=== PATIENT | male | born 1980 | race Caucasian/White ===

== ENCOUNTER 2020-10-09 09:30 | Emergency (ER) | payer OTHER, SELFPAY ==
--- NOTE | 2020-10-09 | ECG_ITS ---
Test Reason : CHEST PAIN Blood Pressure : / mmHG Vent. Rate : 081 BPM Atrial Rate : 081 BPM P-R Int : 166 ms QRS Dur : 092 ms QT Int : 348 ms P-R-T Axes : 064 041 037 degrees QTc Int : 404 ms Normal sinus rhythm Incomplete right bundle branch block Borderline ECG No previous ECGs available Referred By: Generic ED Physician Electronically Signed By:JOI HORNER
--- NOTE | ~2020-10-09 | CT_ITS ---
EXAMINATION: CT HEAD WITHOUT CONTRAST CLINICAL INFORMATION: Lightheaded COMPARISON: None TECHNIQUE: Contiguous axial imaging was performed from the skull base to vertex without intravenous administration of contrast. This CT examination was performed using dose optimization techniques as appropriate, variously including the following: *Automated exposure control *Adjustment of mA and/or kV according to patient size (this includes techniques or standardized protocols for targeted exams where dose is matched to indication/reason for exam; i.e. extremities or head) *Use of iterative reconstruction technique DLP: 671 mGy-cm FINDINGS: There is no evidence of acute intracranial hemorrhage or territorial infarction. No abnormal mass effect or midline shift is seen. [place] to white matter differentiation is well preserved. No extra-axial fluid collections are identified. The ventricles are normal in size. There is no abnormal attenuation within the brain parenchyma. The osseous structures and soft tissues are normal. The mastoid air cells and visualized portions of the paranasal sinuses are well aerated. CT/CT head/brain wo con IMPRESSION: No acute intracranial pathology.
--- NOTE | ~2020-10-09 | XR_ITS ---
EXAMINATION: XR CHEST CLINICAL INFORMATION: Chest pain COMPARISON: None TECHNIQUE: Frontal view of the chest was obtained. FINDINGS: No significant abnormality is noted involving the heart, lungs, mediastinum, bony thorax or soft tissues. XR/XR chest 1V IMPRESSION: Unremarkable examination.
[2020-10-09 09:36] VITALS: BP 161/103; PULSE 86; RESP 17; TEMP 35.9; O2SAT 98; BMI 23.0
[2020-10-09 10:09] VITALS: BP 146/97; PULSE 76; RESP 14; O2SAT 97
[2020-10-09] MEDS: 0.9 % Sodium Chloride 1,000 ML 999 ML IV (10:15)
--- NOTE | 2020-10-09 10:19 | PC.NURSE ---
Peripheral iv inserted in left ac with an 18 gauge insyte. Blood drawn for labs, site secured and flushed with normal saline. Covid swab obtained. Pt tolerated well
--- NOTE | 2020-10-09 10:20 | ED.CHESTPAIN ---
HPI - Chest Pain General Chief Complaint: Chest Pain <NATALYA Awad Last Filed: 10/09/20 15:43> Stated Complaint: upper chest and arm pain <NATALYA Awad Last Filed: 10/09/20 15:43> Time Seen by Provider: 10/09/20 09:49 <NATALYA wAad Last Filed: 10/09/20 15:43> Source: patient <NATALYA Awad Last Filed: 10/09/20 15:43> Mode of arrival: ambulatory <NATALYA Awad Last Filed: 10/09/20 15:43> Limitations: no limitations <NATALYA Awad Last Filed: 10/09/20 15:43> History of Present Illness HPI narrative: Patient presents to ED for multiple complaints. Patient presents to ED for left stabbing sharp chest pain going down left arm since yesterday. Patient also states right leg tingling. Patient denies any shortness of breath, coughing, fever, chills, or swelling of lower extremities. Patient denies any recent drug use. Patient denies any headache, dizziness, or passing out. She states no medical issues. patient also states acid reflux burning sensation abdomen. patient states also feeling fatigued/tired <NATALYA Awad Last Filed: 10/09/20 15:43> MD complaint: chest pain <NATALYA Awad Last Filed: 10/09/20 15:43> Related Data Allergies/Adverse Reactions: Allergies Allergy/AdvReac Type Severity Reaction Status Date / Time No Known Allergies Allergy Unverified 12/21/19 15:42 <NATALYA Awad Last Filed: 10/09/20 15:43> Review of Systems Review of Systems: Yes all other systems are reviewed and are negative <NATALYA Awad Last Filed: 10/09/20 15:43> Constitutional: Constitutional: Reports as per HPI and Reports no additional constitutional complaints <NATALYA Awad Last Filed: 10/09/20 15:43> Eyes: Eyes: Reports as per HPI and Reports no additional eye complaints <NATALYA Awad Last Filed: 10/09/20 15:43> ENT: Reports system reviewed and no additional complaints, except as documented and Reports as per HPI <NATALYA Awad Last Filed: 10/09/20 15:43> Cardiovascular: Cardiovascular: Reports as per HPI, Reports no additional cardiovascular complaints and Reports chest pain <NATALYA Awad Last Filed: 10/09/20 15:43> Respiratory: Respiratory: Reports as per HPI and Reports no additional respiratory complaints <NATALYA Awad Last Filed: 10/09/20 15:43> Gastrointestinal: Gastrointestinal: Reports as per HPI and Reports no additional gastrointestinal complaints <NATALYA Awad Last Filed: 10/09/20 15:43> Genitourinary: Genitourinary: Reports no additional male genitourinary complaints and Reports as per HPI <NATALYA Awad Last Filed: 10/09/20 15:43> Musculoskeletal: Musculoskeletal: Reports no additional musculoskeletal complaints and Reports as per HPI <NATALYA Awad Last Filed: 10/09/20 15:43> Comments: right leg tingling <NATALYA Awad Last Filed: 10/09/20 15:43> Neurologic: Reports system reviewed and no additional complaints, except as documented and Reports as per HPI <NATALYA Awad Last Filed: 10/09/20 15:43> Comments: right leg tingling <NATALYA Awad Last Filed: 10/09/20 15:43> Psychiatric: Psychiatric: Reports no additional psychiatric complaints and Reports as per HPI <NATALYA Aawd Last Filed: 10/09/20 15:43> [facility] Past Medical History Medical History: Medical History (Updated 10/10/20 @ 00:01 by Lesa Maya) Acid reflux Anxiety <NATALYA Awad Last Filed: 10/09/20 15:43> Social History Social History: Social History Patient Tobacco Use Status: Never used Tobacco Use of substances other than those prescribed or required for medical reasons: No Advance Directives: Yes Advance Directives Information Provided: Yes Advance Directives on File: No <NATALYA Awad Last Filed: 10/09/20 15:43> Physical Exam Vital Signs: Vital Signs: Last Vital Signs Temp 96.7 F L 10/09/20 09:36 Pulse 73 10/09/20 14:54 Resp 18 10/09/20 14:54 BP 140/98 H 10/09/20 14:55 Pulse Ox 98 10/09/20 14:54 Body Mass Index 23.0 <NATALYA Awad Last Filed: 10/09/20 15:43> Vital Signs: Last Vital Signs Temp 96.7 F L 10/09/20 09:36 Pulse 73 10/09/20 14:54 Resp 18 10/09/20 14:54 BP 140/98 H 10/09/20 14:55 Pulse Ox 98 10/09/20 14:54 Body Mass Index 23.0 <Yamil Powell MD - Last Filed: 11/11/20 06:39> Const: General: cooperative, healthy appearing, comfortable, no acute distress, well developed, alert and awake <NATALYA Awad - Last Filed: 10/09/20 15:43> Orientation/consciousness: patient oriented x3 <NATALYA Awad Last Filed: 10/09/20 15:43> HENMT: Head: Yes normal to inspection, Yes No palpable skull fracture present, Yes normocephalic, Yes atraumatic and No abrasion <NATALYA Awad Last Filed: 10/09/20 15:43> Eyes: General: appearance normal, both eyes and all related structures <NATALYA Awad Last Filed: 10/09/20 15:43> Neck: Neck: Yes normal visual inspection, Yes full ROM, Yes no lymphadenopathy, Yes no meningeal signs, Yes trachea midline, Yes supple and No tender <NATALYA Awad Last Filed: 10/09/20 15:43> Chest: Chest palpation & inspection: normal inspection of the chest and normal palpation of entire chest wall <NATALYA Awad Last Filed: 10/09/20 15:43> Resp: Effort & Inspection: normal respiratory effort and able to speak in complete sentences <NATALYA Awad Last Filed: 10/09/20 15:43> Auscultation: clear to auscultation bilaterally <NATALYA Awad Last Filed: 10/09/20 15:43> Cardio: Jugular venous distension: no JVD <NATALYA Awad Last Filed: 10/09/20 15:43> Heart sounds: S1 normal heart sound present and S2 normal heart sound present <NATALYA Awad Last Filed: 10/09/20 15:43> GI: Inspection: Yes normal to inspection and No abdominal wall ecchymosis <NATALYA Awad Last Filed: 10/09/20 15:43> Palpation (GI): Soft to palpation, not firm, nontender, no guarding and not rigid <NATALYA Awad Last Filed: 10/09/20 15:43> : General: No CVA tenderness and Yes no CVA tenderness <NATALYA Awad Last Filed: 10/09/20 15:43> Back/Spine/Pelvis: Back: no CVA tenderness, No CVA tenderness and No back tenderness <NATALYA Awad Last Filed: 10/09/20 15:43> Skin: General skin exam: no rashes or lesions noted and elasticity normal <NATALYA Awad Last Filed: 10/09/20 15:43> Neuro: Other: negative pronator drift. Negative facial droop. Negative SIRS speech. All extremities equal strength 5+. [id number] and rapid hand movement intact. Negative Romberg <NATALYA Awad Last Filed: 10/09/20 15:43> General: patient oriented x3, gait normal, no meningeal signs and CN's II-XI intact bilaterally <NATALYA Awad Last Filed: 10/09/20 15:43> Cranial nerves: Yes CN's II-XII intact bilaterally <NATALYA Awad Last Filed: 10/09/20 15:43> Extrem: Other: bilateral lower extremities negative for any swelling, pitting edema, calf tenderness. all extremities equal strength and 5+. All extremities motor/neuro/vascular exam is intact. <NATALYA Awad Last Filed: 10/09/20 15:43> Psych: Appearance: grossly normal, well kempt and not disheveled <NATALYA Awad Last Filed: 10/09/20 15:43> Course Course Course Narrative: Push it will have a medical evaluation included EKG and troponins. <NATALYA Awad Last Filed: 10/09/20 15:43> I have reviewed the chart <Yamil Powell MD - Last Filed: 11/11/20 06:39> Reevaluation(s) Reevaluation #1: patient EKG negative STEMI. First troponin negative. D-dimer is negative PERC score 0. negative for any neuro deficits. Patient received fluids and GI cocktail. Patient will be re-evaluated. Will send patient for head CT although there is no no deficit due to patient stating feeling lightheaded. <NATALYA Awad - Last Filed: 10/09/20 15:43> Time: 09:59 <NATALYA Awad - Last Filed: 10/09/20 15:43> Reevaluation #2: chest x-ray negative for widened mediastinum. Not suspecting a dissection or PE. Head CT came back normal. Second troponin negative. negative for discrepancy of blood pressure in left upper or right lower extremity. Not concerned for PE or dissection <NATALYA Awad - Last Filed: 10/09/20 15:43> Time: 14:43 <NATALYA Awad - Last Filed: 10/09/20 15:43> MDM - Chest Pain MDM Narrative Medical decision making narrative: atypical chest pain. Paresthesia <NATALYA Awad Last Filed: 10/09/20 15:43> Medical Records Data Medical records narrative: normal sinus rhythm. Incomplete right bundle-branch block. Ventricular rate 81. Pr interval 166. QRS 92. QTC 404 <NATALYA Awad Last Filed: 10/09/20 15:43> Lab Data Result diagrams: : 10/09/20 09:59 10/09/20 09:59 <NATALYA Awad Last Filed: 10/09/20 15:43> Labs: Lab Results 10/09/20 10/09/20 10/09/20 Range/Units 09:59 09:59 09:59 WBC 5.6 (4.8-10.8) X10*3/uL RBC 5.05 (4.60-5.80) X10*6/uL Hgb 15.6 (14.0-18.0) g/dl Hct 43.8 (42-52) % MCV 86.7 (80-98) fL MCH 30.9 (27.0-33.0) pg MCHC 35.6 (31.0-36.0) g/dl RDW 12.2 (11.0-16.0) % Plt Count 195 (160-400) X10*3/uL MPV 12.5 H (9.4-12.4) fL Immature Gran % (Auto) 0.5 H (0.0-0.4) % Neut % (Auto) 58.5 (45-73) % Lymph % (Auto) 27.8 (20-40) % [place] % (Auto) 10.3 (2-11) % Eos % (Auto) 2.5 (0-4) % Baso % (Auto) 0.4 (0-2) % Lymph # (Auto) 1.6 (1.2-4.9) X10*3/uL [place] # (Auto) 0.6 (0.1-1.2) X10*3/uL Eos # (Auto) 0.1 (0.0-0.4) X10*3/uL Baso # (Auto) 0.0 (0.0-0.2) X10*3/uL Abs Immat Gran (auto) 0.03 (0.00-0.03) X10*3/uL Absolute Neuts (auto) 3.3 (2.0-8.3) X10*3/uL Absolute Nucleated RBC 0.000 (0.0-0.012) X10*3/uL Nucleated RBC % (auto) 0.0 (0.0-0.2) /100WBC PT (9.9-13.0) SEC INR (0.9-1.1) APTT (24.1-38.0) SEC D-Dimer NG/ML Sodium 141 (135-145) mmol/L Potassium 3.7 (3.3-5.1) mmol/L Chloride 106 (96-108) mmol/L Carbon Dioxide 25 (22-29) mmol/L Anion Gap 14 (12-20) BUN 11 (9-16) mg/dL Creatinine 0.85 (0.5-1.4) mg/dL Estim Creat Clear Calc 124.7 Estimated GFR > 60 Random Glucose 91 (60-115) mg/dL Calcium 10.0 (8.4-10.2) mg/dL Magnesium 2.0 (1.6-2.6) mg/dL Total Bilirubin 0.7 (0.0-1.0) mg/dL AST 26 (5-37) U/L ALT 42 H (0-40) U/L Alkaline Phosphatase 71 (39-117) U/L Total Creatine Kinase 141 (38-174) U/L Troponin I High Sens < 3.5 (<3.5-35.0) ng/L B-Natriuretic Peptide < 10 (<100) pg/mL Total Protein 7.7 (6.5-8.0) g/dL Albumin 4.6 (3.5-5.0) g/dL COVID-19 ([facility]) (Negative) COVID-19 Clin Com 10/09/20 10/09/20 10/09/20 Range/Units 09:59 09:59 12:41 WBC (4.8-10.8) X10*3/uL RBC (4.60-5.80) X10*6/uL Hgb (14.0-18.0) g/dl Hct (42-52) % MCV (80-98) fL MCH (27.0-33.0) pg MCHC (31.0-36.0) g/dl RDW (11.0-16.0) % Plt Count (160-400) X10*3/uL MPV (9.4-12.4) fL Immature Gran % (Auto) (0.0-0.4) % Neut % (Auto) (45-73) % Lymph % (Auto) (20-40) % [place] % (Auto) (2-11) % Eos % (Auto) (0-4) % Baso % (Auto) (0-2) % Lymph # (Auto) (1.2-4.9) X10*3/uL [place] # (Auto) (0.1-1.2) X10*3/uL Eos # (Auto) (0.0-0.4) X10*3/uL Baso # (Auto) (0.0-0.2) X10*3/uL Abs Immat Gran (auto) (0.00-0.03) X10*3/uL Absolute Neuts (auto) (2.0-8.3) X10*3/uL Absolute Nucleated RBC (0.0-0.012) X10*3/uL Nucleated RBC % (auto) (0.0-0.2) /100WBC PT 11.0 (9.9-13.0) SEC INR 1.0 (0.9-1.1) APTT 39.5 H (24.1-38.0) SEC D-Dimer < 200 NG/ML Sodium (135-145) mmol/L Potassium (3.3-5.1) mmol/L Chloride (96-108) mmol/L Carbon Dioxide (22-29) mmol/L Anion Gap (12-20) BUN (9-16) mg/dL Creatinine (0.5-1.4) mg/dL Estim Creat Clear Calc Estimated GFR Random Glucose (60-115) mg/dL Calcium (8.4-10.2) mg/dL Magnesium (1.6-2.6) mg/dL Total Bilirubin (0.0-1.0) mg/dL AST (5-37) U/L ALT (0-40) U/L Alkaline Phosphatase (39-117) U/L Total Creatine Kinase (38-174) U/L Troponin I High Sens < 3.5 (<3.5-35.0) ng/L B-Natriuretic Peptide (<100) pg/mL Total Protein (6.5-8.0) g/dL Albumin (3.5-5.0) g/dL COVID-19 ([facility]) Negative (Negative) COVID-19 Clin Com See Note <NATALYA Awad - Last Filed: 10/09/20 15:43> Lab Results 10/09/20 10/09/20 10/09/20 Range/Units 09:59 09:59 09:59 WBC 5.6 (4.8-10.8) X10*3/uL RBC 5.05 (4.60-5.80) X10*6/uL Hgb 15.6 (14.0-18.0) g/dl Hct 43.8 (42-52) % MCV 86.7 (80-98) fL MCH 30.9 (27.0-33.0) pg MCHC 35.6 (31.0-36.0) g/dl RDW 12.2 (11.0-16.0) % Plt Count 195 (160-400) X10*3/uL MPV 12.5 H (9.4-12.4) fL Immature Gran % (Auto) 0.5 H (0.0-0.4) % Neut % (Auto) 58.5 (45-73) % Lymph % (Auto) 27.8 (20-40) % [place] % (Auto) 10.3 (2-11) % Eos % (Auto) 2.5 (0-4) % Baso % (Auto) 0.4 (0-2) % Lymph # (Auto) 1.6 (1.2-4.9) X10*3/uL [place] # (Auto) 0.6 (0.1-1.2) X10*3/uL Eos # (Auto) 0.1 (0.0-0.4) X10*3/uL Baso # (Auto) 0.0 (0.0-0.2) X10*3/uL Abs Immat Gran (auto) 0.03 (0.00-0.03) X10*3/uL Absolute Neuts (auto) 3.3 (2.0-8.3) X10*3/uL Absolute Nucleated RBC 0.000 (0.0-0.012) X10*3/uL Nucleated RBC % (auto) 0.0 (0.0-0.2) /100WBC PT (9.9-13.0) SEC INR (0.9-1.1) APTT (24.1-38.0) SEC D-Dimer NG/ML Sodium 141 (135-145) mmol/L Potassium 3.7 (3.3-5.1) mmol/L Chloride 106 (96-108) mmol/L Carbon Dioxide 25 (22-29) mmol/L Anion Gap 14 (12-20) BUN 11 (9-16) mg/dL Creatinine 0.85 (0.5-1.4) mg/dL Estim Creat Clear Calc 124.7 Estimated GFR > 60 Random Glucose 91 (60-115) mg/dL Calcium 10.0 (8.4-10.2) mg/dL Magnesium 2.0 (1.6-2.6) mg/dL Total Bilirubin 0.7 (0.0-1.0) mg/dL AST 26 (5-37) U/L ALT 42 H (0-40) U/L Alkaline Phosphatase 71 (39-117) U/L Total Creatine Kinase 141 (38-174) U/L Troponin I High Sens < 3.5 (<3.5-35.0) ng/L B-Natriuretic Peptide < 10 (<100) pg/mL Total Protein 7.7 (6.5-8.0) g/dL Albumin 4.6 (3.5-5.0) g/dL COVID-19 ([facility]) (Negative) COVID-19 Clin Com 10/09/20 10/09/20 10/09/20 Range/Units 09:59 09:59 12:41 WBC (4.8-10.8) X10*3/uL RBC (4.60-5.80) X10*6/uL Hgb (14.0-18.0) g/dl Hct (42-52) % MCV (80-98) fL MCH (27.0-33.0) pg MCHC (31.0-36.0) g/dl RDW (11.0-16.0) % Plt Count (160-400) X10*3/uL MPV (9.4-12.4) fL Immature Gran % (Auto) (0.0-0.4) % Neut % (Auto) (45-73) % Lymph % (Auto) (20-40) % [place] % (Auto) (2-11) % Eos % (Auto) (0-4) % Baso % (Auto) (0-2) % Lymph # (Auto) (1.2-4.9) X10*3/uL [place] # (Auto) (0.1-1.2) X10*3/uL Eos # (Auto) (0.0-0.4) X10*3/uL Baso # (Auto) (0.0-0.2) X10*3/uL Abs Immat Gran (auto) (0.00-0.03) X10*3/uL Absolute Neuts (auto) (2.0-8.3) X10*3/uL Absolute Nucleated RBC (0.0-0.012) X10*3/uL Nucleated RBC % (auto) (0.0-0.2) /100WBC PT 11.0 (9.9-13.0) SEC INR 1.0 (0.9-1.1) APTT 39.5 H (24.1-38.0) SEC D-Dimer < 200 NG/ML Sodium (135-145) mmol/L Potassium (3.3-5.1) mmol/L Chloride (96-108) mmol/L Carbon Dioxide (22-29) mmol/L Anion Gap (12-20) BUN (9-16) mg/dL Creatinine (0.5-1.4) mg/dL Estim Creat Clear Calc Estimated GFR Random Glucose (60-115) mg/dL Calcium (8.4-10.2) mg/dL Magnesium (1.6-2.6) mg/dL Total Bilirubin (0.0-1.0) mg/dL AST (5-37) U/L ALT (0-40) U/L Alkaline Phosphatase (39-117) U/L Total Creatine Kinase (38-174) U/L Troponin I High Sens < 3.5 (<3.5-35.0) ng/L B-Natriuretic Peptide (<100) pg/mL Total Protein (6.5-8.0) g/dL Albumin (3.5-5.0) g/dL COVID-19 ([facility]) Negative (Negative) COVID-19 Clin Com See Note <Yamil Powell MD - Last Filed: 11/11/20 06:39> Discharge Plan Discharge Clinical Impression: Atypical chest pain, Paresthesia <NATALYA Awad - Last Filed: 10/09/20 15:43> Patient Disposition: Home, Self-Care <NATALYA Awad - Last Filed: 10/09/20 15:43> Instructions: Chest Pain (ED), Paresthesia (ED) <NATALYA Awad - Last Filed: 10/09/20 15:43> Additional Instructions: your EKG and troponin came back negative for heart attack. Her D-dimer came back negative for risk of blood clot. A chest x-ray negative for pneumonia. A COVID swab came back negative. His CPK came back negative for rhabdomyolysis. Your head CT came back normal. Your liver enzymes came back normal. Kidney function is normal. Your electrolytes were normal. Your blood cell count was normal. Return to the ED for worsening chest pain, fever, chills, nausea, vomiting, swelling of lower extremities, calf pain, or any other concerning symptoms. Please follow-up with your PCP. <NATALYA Awad - Last Filed: 10/09/20 15:43> Referrals: Rika Zheng MD [Primary Care Provider] - 2 days ( atypical chest pain and paresthesia.) <NATALYA Awad - Last Filed: 10/09/20 15:43> Stand Alone Forms: Work/School Release <NATALYA Awad - Last Filed: 10/09/20 15:43> Interventions: ED Discharge Assessment Last Done: 10/09/20 15:21 <NATALYA Awad - Last Filed: 10/09/20 15:43> Discharge Date/Time: 10/09/20 15:23 <NATALYA Awad - Last Filed: 10/09/20 15:43>
[2020-10-09 10:27] LABS: MANUAL DIFF FLAG NO
[2020-10-09 10:29] LABS: Basophils Percent Auto 0.4 % (0-2); Eosinophils Absolute Auto 0.1 X10*3/uL (0.0-0.4); Eosinophils Percent Auto 2.5 % (0-4); Hematocrit 43.8 % (42-52); Hemoglobin 15.6 g/dl (14.0-18.0); Imm Gran Abs Auto 0.03 X10*3/uL (0.00-0.03); Imm Gran Pct Auto 0.5 % (0.0-0.4); Lymphocytes Absolute Auto 1.6 X10*3/uL (1.2-4.9); Lymphocytes Percent Auto 27.8 % (20-40); Mean Corpuscular HGB Conc 35.6 g/dl (31.0-36.0); Mean Corpuscular Hemoglobin 30.9 pg (27.0-33.0); Mean Corpuscular Volume 86.7 fL (80-98); Mean Platelet Volume 12.5 fL (9.4-12.4); Monocytes Absolute Auto 0.6 X10*3/uL (0.1-1.2); Monocytes Percent Auto 10.3 % (2-11); Neutrophils Absolute Auto 3.3 X10*3/uL (2.0-8.3); Neutrophils Percent Auto 58.5 % (45-73); Platelet Count 195 X10*3/uL (160-400); Red Blood Count 5.05 X10*6/uL (4.60-5.80); Red Cell Distribution Width 12.2 % (11.0-16.0); White Blood Count 5.6 X10*3/uL (4.8-10.8)
[2020-10-09 10:37] LABS: Partial Thromboplastin Time 39.5 SEC (24.1-38.0)
[2020-10-09 10:41] LABS: COVID-19 Test Negative (Negative)
[2020-10-09 10:50] LABS: D Dimer < 200 NG/ML
[2020-10-09 11:00] LABS: Alanine Aminotransferase 42 U/L (0-40); Albumin Level 4.6 g/dL (3.5-5.0); Alkaline Phosphatase 71 U/L (39-117); Anion Gap 14 (12-20); Aspartate Amino Transferase 26 U/L (5-37); Bilirubin Total 0.7 mg/dL (0.0-1.0); Blood Urea Nitrogen 11 mg/dL (9-16); Carbon Dioxide 25 mmol/L (22-29); Chloride 106 mmol/L (96-108); Creatinine Clr Calc Pharmacy 124.7; Estimated Glomerular Filt Rate > 60; Glucose Random 91 mg/dL (60-115); Potassium 3.7 mmol/L (3.3-5.1); Sodium 141 mmol/L (135-145); Total Protein 7.7 g/dL (6.5-8.0)
[2020-10-09 11:03] LABS: B Type Natriuretic Peptide < 10 pg/mL (<100); Troponin-I High Sensitivity < 3.5 ng/L (<3.5-35.0)
[2020-10-09 11:27] VITALS: BP 144/94; PULSE 68; RESP 14; O2SAT 97
[2020-10-09] MEDS: Famotidine 20 MG TABLET PO (11:47)
[2020-10-09] MEDS: PHENobarb/Hyoscy/Atropine/Scop 10 ML ELIXIR PO (11:48)
[2020-10-09] MEDS: Magnesium Hydrox/Alum Hydrox 30 ML ORAL.SUSP PO (11:48)
[2020-10-09] MEDS: Lidocaine HCl Viscous 2 % 15 ML SOLUTION MUCOUS MEM (11:49)
[2020-10-09 12:38] VITALS: BP 137/98; PULSE 75; RESP 16; O2SAT 97
--- NOTE | 2020-10-09 12:39 | PC.NURSE ---
Pt states he is no longer having the intermittent sharp pains in his chest. Pt states he still has the constant chest discomfort/pain but states it is vague and he rates it a 2/10
[2020-10-09 13:40] LABS: Troponin-I High Sensitivity < 3.5 ng/L (<3.5-35.0)
[2020-10-09 14:54] VITALS: BP 136/93; PULSE 73; RESP 18; O2SAT 98
[2020-10-09 14:55] VITALS: BP 140/98
== END 2020-10-09 15:23 | disposition home or self-care (01) ==
PROVIDERS: Physician Assistant; Emergency Provider Emergency Medicine; PCP Family Medicine
DX: R07.89 Other chest pain (principal); R20.2 Paresthesia of skin; Z20.822 Contact with and (suspected) exposure to COVID-19
CPT/HCPCS: 36415; 70450; 71045; 80053; 82550; 83735; 83880; 84484; 85025; 85379; 85610; 85730; 87635; 93005; 96360; 99285